=== PATIENT | female | born 1990 | race Caucasian/White ===

== ENCOUNTER → 2018-03-27 | Outpatient (CLI) | payer MEDICAID | LOC: FIMAGING 14:46 | PROVIDERS: ATTEND Obstetrics & Gynecology | DX: Z34.81 Encounter for supervision of other normal pregnancy, first trimester (principal); Z3A.11 11 weeks gestation of pregnancy ==

== ENCOUNTER → 2018-06-07 | Outpatient (CLI) | payer MEDICAID | LOC: FIMAGING 13:26 | PROVIDERS: ATTEND Obstetrics & Gynecology | DX: O26.832 Pregnancy related renal disease, second trimester (principal); Z3A.24 24 weeks gestation of pregnancy ==

== ENCOUNTER → 2018-07-26 | Outpatient (CLI) | payer MEDICAID | LOC: FIMAGING 09:20 | PROVIDERS: ATTEND Obstetrics & Gynecology | DX: O35.8XX0 Maternal care for other (suspected) fetal abnormality and damage, not applicable or unspecified (principal); Z3A.33 33 weeks gestation of pregnancy ==